=== PATIENT | female | born 1990 | race Native Hawaiian/Other Pacific Islander ===

== ENCOUNTER → 2016-09-20 | Outpatient (CLI) | payer OTHER ==
[~2016-09-20] VITALS: Ht 154.9 cm; Wt 82.4 kg
[2016-09-20] VITALS (14 sets, daily range): BP systolic 101–145; BP diastolic 66–89; PULSE 74–108
[~2016-09-20] MED LIST: GLUCOTROL 5M5 MG/TAB PO; JARDIANCE25 PO; LANTUS100 U/ML SQ; PRENATAL 191 TAB PO; PRINIVIL5 MG PO
[2016-09-20 13:11] LABS: PROTHROMBIN TIME 11.1 SECONDS (9.7-12.8)
== END ==
LOC: COL.RAD 12:00
PROVIDERS: Internal Medicine Gastroenterology
DX: K76.0 Fatty (change of) liver, not elsewhere classified (principal); R74.0 Nonspecific elevation of levels of transaminase and lactic acid dehydrogenase [LDH]
CPT/HCPCS: J3010